=== PATIENT | female | born 1980 | race American Indian/Alaskan Native ===

== ENCOUNTER 2019-01-12 14:21 | Emergency (ER) | payer OTHER ==
--- NOTE | 2019-01-12 14:35 | Emergency Department Report ---
Blank Doc - Documentation Documentation: This is a 38-year-old female that presents with headache and depression. Denies any SI/HI. Stated has stress at work and recent separation from fiance. Denies worst headache. Denies thunderclap headache. Denies any injuries or trauma. This initial assessment/diagnostic orders/clinical plan/treatment(s) is/are subject to change based on patient's health status, clinical progression and re- assessment by fellow clinical providers in the ED. Further treatment and workup at subsequent clinical providers discretion. Patient/guardians urged not to elope from the ED as their condition may be serious if not clinically assessed and managed. Initial orders include: 1- Patient sent to [facility] for further evaluation and treatment
[2019-01-12 14:36] VITALS: BP 145/98
--- NOTE | 2019-01-12 15:33 | Emergency Department Report ---
ED General Adult HPI - General Chief complaint: Headache Stated complaint: HEADACHE/DIZZY/OVERWHELMED Time Seen by Provider: 01/12/19 14:35 Source: patient Mode of arrival: Ambulatory Limitations: No Limitations - History of Present Illness Initial comments: Patient is a 38-year-old female that presents emergency room with complaints of headache headache and feeling stressed out. Patient states she's been under a lot of stress with life lately. Patient states she is feeling depressed and anxious. Patient denies homicidal or suicidal ideations. Patient denies hallucinations. Patient states she's been very emotional and crying a lot. Patient is with her mother at this time. Mother states the patient is going through a lot and is overwhelmed States this time her headache is a 0 out of 10. Patient states she has a chronic history of migraines. Patient states she is really not here for headaches but more to get help with her depression. -: Sudden - Related Data Home Medications Medication Instructions Recorded Confirmed Last Taken Butalb/Acetamin/Caff 50-325-40 1 tab PO Q6HR PRN 01/12/19 01/12/19 01/09/19 [Fioricet 50-325-40] Previous Rx's Medication Instructions Recorded Last Taken Type Escitalopram Oxalate [Lexapro] 10 mg PO DAILY #15 tablet 01/12/19 Unknown Rx Allergies Allergy/AdvReac Type Severity Reaction Status Date / Time No Known Allergies Allergy Unverified 01/12/19 14:36 ED Review of Systems ROS: Stated complaint: HEADACHE/DIZZY/OVERWHELMED Other details as noted in HPI Constitutional: denies: chills, fever Eyes: denies: eye pain, eye discharge, vision change ENT: denies: ear pain, throat pain Respiratory: denies: cough, shortness of breath, wheezing Cardiovascular: denies: chest pain, palpitations Endocrine: no symptoms reported Gastrointestinal: denies: abdominal pain, nausea, diarrhea Genitourinary: denies: urgency, dysuria, discharge Musculoskeletal: denies: back pain, joint swelling, arthralgia Skin: denies: rash, lesions Neurological: denies: headache, weakness, paresthesias Psychiatric: anxiety, depression. denies: auditory hallucinations, visual hallucinations, homicidal thoughts, suicidal thoughts Hematological/Lymphatic: denies: easy bleeding, easy bruising ED Past Medical Hx - Past Medical History Previous Medical History?: Yes Hx Headaches / Migraines: Yes - Surgical History Past Surgical History?: No - Family History Family history: no significant - Social History Smoking Status: Never Smoker Substance Use Type: None - Medications Home Medications: Home Medications Medication Instructions Recorded Confirmed Last Taken Type Butalb/Acetamin/Caff 50-325-40 1 tab PO Q6HR PRN 01/12/19 01/12/19 01/09/19 History [Fioricet 50-325-40] Escitalopram Oxalate [Lexapro] 10 mg PO DAILY #15 tablet 01/12/19 Unknown Rx ED Physical Exam - General Limitations: No Limitations General appearance: alert, in no apparent distress - Head Head exam: Present: atraumatic, normocephalic - Eye Eye exam: Present: normal appearance, PERRL Pupils: Present: normal accommodation - ENT ENT exam: Present: mucous membranes moist - Neck Neck exam: Present: normal inspection - Respiratory Respiratory exam: Present: normal lung sounds bilaterally. Absent: respiratory distress, wheezes, rales - Cardiovascular Cardiovascular Exam: Present: regular rate, normal rhythm. Absent: systolic murmur, diastolic murmur, rubs, gallop - GI/Abdominal GI/Abdominal exam: Present: soft, normal bowel sounds - Rectal Rectal exam: Present: deferred - Extremities Exam Extremities exam: Present: normal inspection - Back Exam Back exam: Present: normal inspection - Neurological Exam Neurological exam: Present: alert, oriented X3 - Psychiatric Psychiatric exam: Present: depressed - Skin Skin exam: Present: warm, dry, intact, normal color. Absent: rash ED Course Vital Signs 01/12/19 14:34 Temperature 98.9 F Pulse Rate 79 Respiratory 18 Rate Blood Pressure 145/98 O2 Sat by Pulse 98 Oximetry - Reevaluation(s) Reevaluation #1: I discussed all clinical findings with patient. I discussed plan of care with patient. Patient agrees with plan of care. Patient is stable for discharge. Patient will be discharged home. Patient given discharge instructions. Patient voiced understanding of discharge instructions 01/12/19 16:06 ED Medical Decision Making - Medical Decision Making Patient is a 38-year-old female that presents emergency room with complaints of stress reaction, depression and headache. Patient's headache is chronic and patient does not have a headache at this time. Patient states she is having more frequent headaches with 0 while in the ER. Patient found to be depressed and will be given antidepressant. Patient prescribed Lexapro. Patient does not have emergent medical condition. Patient given outpatient resources. Patient is not having suicidal or homicidal ideations. Patient seems medically and psychiatrically stable. Patient discharged home. - Differential Diagnosis [place]. Anxiety. Stress reaction. Critical care attestation.: If time is entered above; I have spent that time in minutes in the direct care of this critically ill patient, excluding procedure time. ED Disposition Clinical Impression: Stress reaction Depression Qualifiers: Depression Type: unspecified Qualified Code(s): F32.9 - Major depressive disorder, single episode, unspecified Disposition: Z- MED SCREENING EXAM-CONT Is pt being admited?: No Does the pt Need Aspirin: No Condition: Stable Instructions: Depression (ED), Anxiety (ED) Additional Instructions: Patient to follow-up with primary care in 2-3 days. Patient to follow-up with psychiatrist in 2-3 days. Patient to return to ER if condition worsens. Patient to utilize outpatient resources given to her in the ER. Patient to increase water. Patient to take meds as directed. Prescriptions: Escitalopram Oxalate [Lexapro] 10 mg PO DAILY #15 tablet Time of Disposition: 16:10
== END 2019-01-12 17:15 | disposition home or self-care (01) ==
LOC: ED 14:21
DX: F43.9 Reaction to severe stress, unspecified (principal); F32.9 Major depressive disorder, single episode, unspecified; G43.909 Migraine, unspecified, not intractable, without status migrainosus; Z79.899 Other long term (current) drug therapy
CPT/HCPCS: 99282